=== PATIENT | male | born 1955 | race Caucasian/White ===

== ENCOUNTER 2016-12-25 21:54 | Emergency (ER) | payer MEDICAID ==
[~2016-12-25] VITALS: Ht 177.8 cm; Wt 124.7 kg
[~2016-12-25 21:54] MED LIST: CARV3.12 PO; LEVO25TA9 PO; NITR0.4T6 SL
[2016-12-25 21:57] VITALS: BP 141/86
[2016-12-25] MEDS ORDERED: IBUPROFEN 400 MG TABLET ONE (22:28)
[2016-12-25] MEDS ORDERED: IBUPROFEN 400 MG TABLET PO ONE (22:30)
== END 2016-12-26 00:50 | disposition home or self-care (01) ==
LOC: ER 21:55
DX: M79.671 Pain in right foot (principal); I10 Essential (primary) hypertension; V87.8XXA Person injured in other specified noncollision transport accidents involving motor vehicle (traffic), initial encounter; Y93.55 Activity, bike riding; Y92.89 Other specified places as the place of occurrence of the external cause; Y99.9 Unspecified external cause status
CPT/HCPCS: 73630; 99284; A4606; Z7610

== ENCOUNTER 2017-12-25 12:30 | Emergency (ER) | payer MEDICAID, OTHER ==
[~2017-12-25] VITALS: Ht 177.8 cm; Wt 117.9 kg
[~2017-12-25 12:30] MED LIST changes: +NITR0.4T48 SL; -NITR0.4T6 SL
--- NOTE | 2017-12-25 14:01 | NUR ---
PT. VERBALIZED UNDERSTANDING OF AFTERCARE INSTRUCTIONS.Patient discharged to home in stable condition. Written and verbal after care instructions given. Patient verbalizes understanding of instruction.
[2017-12-25 14:02] VITALS: BP 147/88
== END 2017-12-25 14:02 | disposition home or self-care (01) ==
LOC: ER 12:38
DX: L03.115 Cellulitis of right lower limb (principal); I10 Essential (primary) hypertension
CPT/HCPCS: 82962-TC; A4606; Z7610

== ENCOUNTER 2024-05-25 20:40 | Emergency (ER) | payer MEDICARE, OTHER ==
[~2024-05-25] VITALS: Ht 170.2 cm; Wt 83.9 kg
[2024-05-25] MEDS ORDERED: NEOM10DR11 EACH EAR (21:38)
[2024-05-25 21:51] VITALS: BP 136/85; TEMP 98.1; O2SAT 99
== END 2024-05-25 21:52 | disposition home or self-care (01) ==
LOC: ER 20:45
DX: H60.323 Hemorrhagic otitis externa, bilateral (principal); I10 Essential (primary) hypertension; Z79.890 Hormone replacement therapy

== ENCOUNTER 2025-03-01 01:43 | Inpatient (IN) | payer MEDICARE, OTHER ==
[~2025-03-01] VITALS: Ht 172.7 cm; Wt 115.7 kg
[2025-03-01 01:43] VITALS: TEMP 98
[~2025-03-01 01:43] MED LIST changes: +NEOM10DR11 EACH EAR
[2025-03-01] MEDS ORDERED: NITROGLYCERIN 0.4 MG/TAB BOTTLE ONE (02:02)
[2025-03-01] MEDS ORDERED: ASPIRIN 325 MG TABLET ONE (02:03)
[2025-03-01] MEDS: ASPIRIN 325 MG TABLET PO ONE (02:10)
[2025-03-01] MEDS: NITROGLYCERIN 0.4 MG/TAB BOTTLE SL ONE (02:11)
[2025-03-01] MEDS ORDERED: MORPHINE SULFATE INJ 2 MG/ML DISP.SYRIN ONE ×3 (02:12→03:04)
[2025-03-01 02:13] LABS: PLATELET COUNT (AUTO) 326 K/uL (150-450); RED BLOOD CELL COUNT(AUTO) 4.49 MIL/uL (4.5-6.0); RED CELL DISTRIBUTION WIDTH 13.5 % (11.5-15.0); WHITE BLOOD COUNT (AUTO) 8.4 K/uL (4.3-11.0)
[2025-03-01] MEDS: MORPHINE SULFATE INJ 2 MG/ML DISP.SYRIN IV ONE ×3 (02:14→05:32)
[2025-03-01 02:22] LABS: CALCIUM, SERUM 8.9 mg/dL (8.5-10.1); CREATININE 1.1 mg/dL (0.6-1.3); SODIUM SERUM 141 mmol/L (136-145); UREA NITROGEN, BLOOD 30 mg/dL (7-18)
[2025-03-01 02:28] LABS: INR 0.99 (0.91-1.10)
[2025-03-01] MEDS ORDERED: ONDANSETRON HCL/PF 4 MG/2 ML VIAL ONE (02:28)
[2025-03-01] MEDS: ONDANSETRON HCL/PF 4 MG/2 ML VIAL IV ONE (02:30)
[2025-03-01 03:09] LABS: APPEARANCE,URINE CLEAR (CLEAR); BLOOD, URINE 3+ Ery/uL (NEGATIVE); LEUKOCYTE ESTERASE ,URINE TRACE (NEGATIVE); NITRITE, URINE NEGATIVE (NEGATIVE); UGLUCOSE NEGATIVE (NEGATIVE)
[2025-03-01 03:12] LABS: ASPARTATE AMINOTRANSFERASE 28.0 U/L (15-37); TOTAL PROTEIN, SERUM 7.5 g/dL (6.4-8.2)
[2025-03-01 03:22] LABS: ADD URINE CULTURE YES; SQUAMOUS EPITHELIAL CELL,UR Few /HPF (None Seen)
[2025-03-01] MEDS ORDERED: PIPERACI/TAZO 3.375GM/D5W 50ML PB IV ONE (03:51)
[2025-03-01] MEDS ORDERED: Z GUARD REMEDY 4 OZ OINT TP PRN (04:00)
[2025-03-01] MEDS ORDERED: ACETAMINOPHEN 325 MG TABLET PO PRN (04:00)
[2025-03-01] MEDS ORDERED: ONDANSETRON HCL/PF 4 MG/2 ML VIAL IVP PRN (04:00)
[2025-03-01] MEDS: PIPERACILLIN /TAZOBACTAM 3.375 G in IV D5W 50 ML IV ONE (04:05)
[2025-03-01] MEDS ORDERED: MORPHINE SULFATE INJ 4 MG/ML DISP.SYRIN ONE ×2 (05:30→07:43)
[2025-03-01] MEDS: MORPHINE SULFATE INJ 4 MG/ML DISP.SYRIN IV ONE (07:55)
[2025-03-01] MEDS ORDERED: ASPI-1420 PO (09:13)
[2025-03-01] MEDS ORDERED: LOSA1TAB39 PO (09:13)
[2025-03-01] MEDS ORDERED: ESCI20TA PO (09:13)
[2025-03-01] MEDS ORDERED: NAPR-1196 PO (09:13)
[2025-03-01] MEDS ORDERED: IBUP-1490 PO (09:13)
[2025-03-01] MEDS ORDERED: LEVO-148 PO (09:13)
[2025-03-01] MEDS ORDERED: PANTOPRAZOLE 40 MG VIAL ONE (10:18)
[2025-03-01] MEDS ORDERED: ENOXAPARIN SODIUM 40 MG/0.4 ML DISP.SYRIN SQ ONE (10:18)
[2025-03-01] MEDS: ENOXAPARIN SODIUM 40 MG/0.4 ML DISP.SYRIN SQ SCH (10:24)
[2025-03-01] MEDS: PIPERACILLIN /TAZOBACTAM 3.375 G in IV D5W 100 ML IV SCH (10:25)
[2025-03-01] MEDS: PANTOPRAZOLE 40 MG VIAL IV SCH (10:25)
[2025-03-01] MEDS ORDERED: CARV12.52 PO (10:55)
[2025-03-01 11:46] VITALS: O2SAT 97
[2025-03-01] MEDS: MORPHINE SULFATE INJ 4 MG/ML DISP.SYRIN IV PRN (12:56)
[2025-03-01] MEDS ORDERED: PIPERACILLIN /TAZOBACTAM 3.375 G in IV D5W 50 ML IV SCH (13:00)
[2025-03-01] MEDS: IV D5/ 0.9% NACL 1,000 ML IV PRN (13:05)
[2025-03-01 15:13] VITALS: BP 170/106
[2025-03-01] MEDS: hydrALAZINE HCL IV 20 MG VIAL IV PRN (15:13)
== END 2025-03-01 16:25 | disposition left against medical advice (07) | DRG 445 ==
LOC: ER 01:48 → MS IN 05:49 → MED 11:32
PROVIDERS: ADMIT Nurse Practitioner Acute Care
DX: K80.10 Calculus of gallbladder with chronic cholecystitis without obstruction (principal); N39.0 Urinary tract infection, site not specified; I16.0 Hypertensive urgency; E66.9 Obesity, unspecified; E03.9 Hypothyroidism, unspecified; Z68.38 Body mass index [BMI] 38.0-38.9, adult; N40.0 Benign prostatic hyperplasia without lower urinary tract symptoms; Z79.82 Long term (current) use of aspirin; Z79.899 Other long term (current) drug therapy; Z53.29 Procedure and treatment not carried out because of patient's decision for other reasons
CPT/HCPCS: 36415; 71045-TC; 76705-TC; 80048-TC; 80076-TC; 81001; 83605-TC; 84484-TC; 85025-TC; 85730-TC; 87040-TC; 87086-TC; 93307-TC; A4223; G0378; J0360; J1650; J2270; J2405; J2470; J2543; J7042; J7060